=== PATIENT | female | born 1960 | race African-American/Black ===

== ENCOUNTER → 2017-03-30 | Outpatient (CLI) | payer OTHER ==
--- NOTE | 2017-03-30 15:22 | RAD ---
DATE: 03/30/2017. EXAM: DIGITAL SCREEN BILAT W/CAD. HISTORY: Routine mammographic screening. COMPARISON: 02/26/2015. This study was interpreted with the benefit of Computerized Aided Detection (CAD). FINDINGS: The breast parenchyma is dense, which could reduce sensitivity of mammography. Breast parenchyma level density D.. There are no suspicious masses, microcalcifications or architectural distortion. Scattered calcifications are benign. The parenchymal pattern is stable. BI-RADS CATEGORY: 2 BENIGN FINDING(S). RECOMMENDED FOLLOW-UP: 12M 12 MONTH FOLLOW-UP. PQRS compliance statement: Patient information was entered into a reminder system with a target due date 03/30/2018 for the next mammogram. Mammography is a sensitive method for finding small breast cancers, but it does not detect them all and is not a substitute for careful clinical examination. A negative mammogram does not negate a clinically suspicious finding and should not result in delay in biopsying a clinically suspicious abnormality. "Our facility is accredited by the [employer] Mammography [employer]."
== END | disposition home or self-care (01) ==
LOC: MAMMO 13:56
PROVIDERS: ATTEND Family Medicine
DX: Z12.31 Encounter for screening mammogram for malignant neoplasm of breast (principal)
CPT/HCPCS: G0202; 77067

== ENCOUNTER → 2018-04-26 | Outpatient (CLI) | payer OTHER ==
--- NOTE | 2018-04-27 10:01 | RAD ---
DATE: 04/26/2018 2:30 PM EXAM: DIGITAL SCREEN BILAT W/CAD HISTORY: routine screening evaluation COMPARISON: Prior mammographic imaging dating back to 04/15/2009 Bilateral full field craniocaudal and mediolateral oblique images were obtained using digital technique. This study was interpreted with the benefit of Computerized Aided Detection (CAD ). Breast Density: The breast parenchyma is heterogeneously dense, which could reduce sensitivity of mammography. Breast parenchyma level C. FINDINGS: Benign calcifications are present. The parenchymal pattern appears stable. No suspicious masses, microcalcifications or architectural distortion is present to suggest malignancy in either breast. The visualized axillae are unremarkable. IMPRESSION: No mammographic evidence of malignancy. BI-RADS CATEGORY: 2 BENIGN FINDING(S) RECOMMENDED FOLLOW-UP: 12M 12 MONTH FOLLOW-UP Annual screening mammography is recommended, unless clinically indicated sooner based on symptoms or change in physical exam. PQRS compliance statement: Patient information was entered into a reminder system with a target due date 04/27/2019 for the next mammogram. Mammography is a sensitive method for finding small breast cancers, but it does not detect them all and is not a substitute for careful clinical examination. A negative mammogram does not negate a clinically suspicious finding and should not result in delay in biopsying a clinically suspicious abnormality. "Our facility is accredited by the [employer] Mammography [employer]." ASTOND
== END | disposition home or self-care (01) ==
LOC: MAMMO 12:27
PROVIDERS: ATTEND Family Medicine
DX: Z12.31 Encounter for screening mammogram for malignant neoplasm of breast (principal)
CPT/HCPCS: 77067

== ENCOUNTER → 2020-03-05 | Outpatient (CLI) | payer OTHER ==
--- NOTE | 2020-03-05 11:26 | RAD ---
BILATERAL SCREENING MAMMOGRAM History: Routine screening. Comparison: 04/26/2018, 04/29/2017, 02/26/2015, 3 4. Technique: Routine bilateral digital mammogram views were obtained. Findings: Breast Tissue Density C : The breasts are heterogeneously dense, which may obscure small masses. There are no dominant masses, suspicious microcalcifications, or architectural distortion. There is asymmetry of the left outer CC view 7.3 cm from the nipple which probably represents summation of breast parenchyma. IMPRESSION: Spot compression imaging of the left outer breast is recommended. Ultrasound may be needed. BI-RADS Category 0: Incomplete: Need additional imaging evaluation. The images were reviewed with computer aided detection. Patient information is entered into the reminder system with a target due date for the next screening mammogram. Mammography is the most sensitive method for finding small breast cancers, but it does not detect them all and is not a substitute for careful clinical examination. A negative mammogram does not negate a clinically suspicious finding and should not result in delay in biopsying a clinically suspicious abnormality. "Our facility is accredited by the [employer] Mammography Program." Electronically signed by: Jaiden Sanchez MD (03/05/2020 11:23 AM) [email or web address]
== END ==
LOC: MAMMO 08:23
PROVIDERS: ATTEND Family Medicine
DX: Z12.31 Encounter for screening mammogram for malignant neoplasm of breast (principal)
CPT/HCPCS: 77067

== ENCOUNTER → 2020-03-21 | Outpatient (CLI) | payer OTHER ==
--- NOTE | 2020-03-22 07:32 | RAD ---
Examination: 1. Left digital diagnostic mammogram. 2. Left Limited breast ultrasound. INDICATION: 59-year-old woman recalled from screening for asymmetry in the upper-outer left breast. COMPARISON: Screening mammograms of 03/05/2020, 04/26/2018 and 03/30/2017. TECHNIQUE: Full field left ML view as well as spot compression and magnification CC and MLO views were obtained, reviewed with computer-aided detection. Targeted ultrasound of the upper outer quadrant left breast was subsequently pursued. FINDINGS: Heterogeneously dense breast parenchyma. Questioned asymmetry in the upper outer left breast changed configuration in a pattern suggestive of benign overlap of dense fibroglandular tissue. Spot compression views suggested possible microcalcifications in the area that was investigated further with magnification views. This showed a few punctate calcifications in a scattered distribution. Ultrasound was pursued of the upper outer quadrant left breast and showed good 30 o'clock position 6 cm from the nipple a 1.2 cm ovoid ridge of dense fibroglandular tissue with subtle posterior acoustic shadowing. My request, the medical technologist blood bank marked this at the skin surface with a triangular marker (although no palpable abnormality was apparent) and additional mammographic magnification views were obtained for correlation. No definite mammographic correlate to the sonographic finding was appreciated on the additional views. IMPRESSION: Probably benign asymmetry representing overlap of dense glandular tissue in the upper outer left breast. Recommend 6 month follow-up right diagnostic mammogram and targeted breast ultrasound. BI-RADS Category 3 Probably benign findings Six-month follow-up left mammogram and targeted breast ultrasound recommended Electronically signed by: Antonio Cash MD (03/22/2020 7:29 AM) [id number]
== END ==
LOC: MAMMO 10:15
PROVIDERS: ATTEND Family Medicine
DX: R92.2 Inconclusive mammogram (principal)
CPT/HCPCS: 76641; 77065